=== PATIENT | female | born 1985 | race Caucasian/White ===

== ENCOUNTER 2016-07-21 08:13 | Emergency (ER) | payer OTHER ==
[~2016-07-21 08:13] MED LIST: ABILIFY10 MG PO; AZASAN75 MG PO; CATAPRES 0.1MG0.1 MG PO; ELAVIL 10 MG TA10 MG PO; ENTOCORT EC3 MG PO; HYDROXYZINE HCL25 MG PO; LOMOTIL 2.5-0.1 EACH PO; MERCAPTOPURINE50 MG PO; METOPROLOL SUC100 MG PO; NAPROSYN500 MG PO; PHENAZOPYRIDIN200 MG PO; TIZANIDINE HCL4 M1 PO; TOPAMAX 100 MG100 MG PO; TRAZODONE HCL100 MG PO; WELLBUTRIN SR150 MG PO; ZANTAC150 MG PO
[2016-07-21 09:49] LABS: RED BLOOD COUNT 4.94 M/UL (4.00-5.10); WHITE BLOOD COUNT 8.9 K/UL (4.5-11.0)
[2016-07-21 10:12] LABS: BUN/CREATININE RATIO 13 (0-10)
== END 2016-07-21 13:25 | disposition home or self-care (01) ==
LOC: ER1 08:13
PROVIDERS: Physician Assistant
DX: R10.13 Epigastric pain (principal); R10.12 Left upper quadrant pain; K62.5 Hemorrhage of anus and rectum; R19.7 Diarrhea, unspecified; R11.2 Nausea with vomiting, unspecified; Z90.49 Acquired absence of other specified parts of digestive tract
CPT/HCPCS: 36415; 80053; 81001; 82150; 83690; 85025; 96361; 96374; 96375; 96376; 99284; J2270; J2405; J7050; Q9962

== ENCOUNTER 2016-08-16 18:10 | Emergency (ER) | payer OTHER ==
[2016-08-16 19:27] LABS: HEMOGLOBIN 12.8 gm/dl (12.3-15.3); RED BLOOD COUNT 4.79 M/UL (4.00-5.10); WHITE BLOOD COUNT 11.5 K/UL (4.5-11.0)
[2016-08-16 19:46] LABS: BUN/CREATININE RATIO 11 (0-10)
== END 2016-08-17 00:15 | disposition home or self-care (01) ==
LOC: ER1 18:10
PROVIDERS: Family Medicine
DX: N39.0 Urinary tract infection, site not specified (principal); F41.9 Anxiety disorder, unspecified; F32.9 Major depressive disorder, single episode, unspecified; K58.9 Irritable bowel syndrome, unspecified; I10 Essential (primary) hypertension; Z90.710 Acquired absence of both cervix and uterus; Z90.49 Acquired absence of other specified parts of digestive tract
CPT/HCPCS: 36415; 80053; 81001; 82150; 83690; 84703; 85025; 87086; 96361; 96374; 96375; 96376; 99284; J2270; J2405; J7050; Q9962

== ENCOUNTER 2016-09-22 10:47 | Emergency (ER) | payer OTHER ==
[2016-09-22 11:51] LABS: HEMOGLOBIN 14.4 gm/dl (12.3-15.3); RED BLOOD COUNT 5.37 M/UL (4.00-5.10); WHITE BLOOD COUNT 14.8 K/UL (4.5-11.0)
[2016-09-22 11:58] LABS: BUN/CREATININE RATIO 12 (0-10)
== END 2016-09-22 14:40 | disposition home or self-care (01) ==
LOC: ER1 10:47
PROVIDERS: Preventive Medicine Occupational Medicine
DX: K50.90 Crohn's disease, unspecified, without complications (principal); N39.0 Urinary tract infection, site not specified; F41.9 Anxiety disorder, unspecified; Z87.891 Personal history of nicotine dependence; Z79.899 Other long term (current) drug therapy
CPT/HCPCS: 36415; 80053; 80307; 81001; 82150; 83690; 85025; 86140; 96361; 96374; 96375; 99284; J2405; J2550; J7050; Q9962

== ENCOUNTER 2020-07-01 23:38 | Emergency (ER) | payer MEDICARE ==
[~2020-07-01 23:38] MED LIST changes: +CEFUROXIME500 MG PO; +CIPRO500 MG PO; +FLAGYL500 MG PO; +IBUPROFEN800 MG PO; +K-DUR TAB 20 M20 MEQ PO; +MEDROL DOSEPAK 24 MG PO; +PHENERGAN 12.12.5 M1 PO; +PHENERGAN 25 MG25 M1 PO; +PREDNISONE20 MG PO; +PYRIDIUM200 MG PO
[2020-07-02 00:56] LABS: HEMOGLOBIN 12.4 gm/dl (12.3-15.3); RED BLOOD COUNT 4.8 M/UL (4.00-5.10); WHITE BLOOD COUNT 16.8 K/UL (4.5-11.0)
[2020-07-02 01:10] LABS: BUN/CREATININE RATIO 16 (0-10)
[2020-07-02] MEDS ORDERED: ENDOCET 5-3251 EACH PO (01:40)
[2020-07-02] MEDS ORDERED: AUGMENTIN 875-1 EACH PO (01:47)
[2020-07-02] MEDS ORDERED: PREDNISONE 20 M20 MG PO (01:47)
[2020-07-02] MEDS ORDERED: PHENERGAN 25 MG25 M1 PO (01:50)
== END 2020-07-02 02:10 | disposition home or self-care (01) ==
LOC: ER1 23:38
PROVIDERS: Emergency Medicine
DX: K50.90 Crohn's disease, unspecified, without complications (principal); K62.5 Hemorrhage of anus and rectum; E11.9 Type 2 diabetes mellitus without complications; Z88.5 Allergy status to narcotic agent; Z88.8 Allergy status to other drugs, medicaments and biological substances; Z79.4 Long term (current) use of insulin; Z90.710 Acquired absence of both cervix and uterus; Z88.7 Allergy status to serum and vaccine
CPT/HCPCS: 36415; 80053; 81001; 83690; 85025; 96374; 96375; 96376; 99284; J1100; J1170; J2550

== ENCOUNTER 2020-07-04 16:25 | Emergency (ER) | payer MEDICARE, OTHER ==
[~2020-07-04 16:25] MED LIST changes: +AUGMENTIN 875-1 EACH PO; +ENDOCET 5-3251 EACH PO; +PREDNISONE 20 M20 MG PO
[2020-07-04 17:42] LABS: HEMOGLOBIN 13.2 gm/dl (12.3-15.3); RED BLOOD COUNT 5.05 M/UL (4.00-5.10); WHITE BLOOD COUNT 17.4 K/UL (4.5-11.0)
[2020-07-04 18:02] LABS: BUN/CREATININE RATIO 15 (0-10)
[2020-07-04] MEDS ORDERED: PREDNISONE 20 M20 MG PO (20:19)
== END 2020-07-04 20:54 | disposition home or self-care (01) ==
LOC: ER1 16:25
PROVIDERS: Emergency Medicine
DX: K62.5 Hemorrhage of anus and rectum (principal); I12.9 Hypertensive chronic kidney disease with stage 1 through stage 4 chronic kidney disease, or unspecified chronic kidney disease; E11.22 Type 2 diabetes mellitus with diabetic chronic kidney disease; N18.9 Chronic kidney disease, unspecified; Z88.5 Allergy status to narcotic agent; Z88.8 Allergy status to other drugs, medicaments and biological substances; Z90.710 Acquired absence of both cervix and uterus; Z88.6 Allergy status to analgesic agent
CPT/HCPCS: 36415; 80053; 82550; 82553; 83690; 83874; 84484; 85025; 85610; 85730; 96372; 96374; 99284; J2270; J2405; J2550; Q9967

== ENCOUNTER 2020-08-28 00:02 | Emergency (ER) | payer MEDICARE, OTHER ==
[2020-08-28 02:19] LABS: RED BLOOD COUNT 5.28 M/UL (4.00-5.10); WHITE BLOOD COUNT 13.7 K/UL (4.5-11.0)
[2020-08-28 02:41] LABS: BUN/CREATININE RATIO 9 (0-10)
[2020-08-28] MEDS ORDERED: CIPRO500 MG PO (04:07)
[2020-08-28] MEDS ORDERED: PREDNISONE 20 M20 MG PO (04:07)
[2020-08-28] MEDS ORDERED: K-DUR TAB 20 M20 MEQ PO (04:07)
[2020-08-28] MEDS ORDERED: PHENERGAN 25 MG25 M1 PO (04:07)
[2020-08-28] MEDS ORDERED: FLAGYL500 MG PO (04:07)
== END 2020-08-28 04:30 | disposition home or self-care (01) ==
LOC: ER1 00:02
PROVIDERS: Physician Assistant
DX: K50.90 Crohn's disease, unspecified, without complications (principal); E87.6 Hypokalemia; E11.9 Type 2 diabetes mellitus without complications; Z90.89 Acquired absence of other organs; Z90.49 Acquired absence of other specified parts of digestive tract; Z90.710 Acquired absence of both cervix and uterus; Z79.899 Other long term (current) drug therapy; Z88.5 Allergy status to narcotic agent; Z88.8 Allergy status to other drugs, medicaments and biological substances
CPT/HCPCS: 80053; 81001; 82272; 83690; 85025; 96374; 96375; 99284; J2270; J2550

== ENCOUNTER 2020-09-06 22:56 | Emergency (ER) | payer MEDICARE, OTHER ==
[2020-09-07 02:25] LABS: HEMOGLOBIN 13.3 gm/dl (12.3-15.3); RED BLOOD COUNT 4.99 M/UL (4.00-5.10)
[2020-09-07 02:44] LABS: BUN/CREATININE RATIO 13 (0-10)
[2020-09-07] MEDS ORDERED: FLAGYL500 MG PO (03:28)
[2020-09-07] MEDS ORDERED: PREDNISONE 20 M20 MG PO (03:28)
[2020-09-07] MEDS ORDERED: CIPRO500 MG PO (03:28)
[2020-09-07] MEDS ORDERED: PHENERGAN 25 MG25 M1 PO (03:28)
== END 2020-09-07 02:45 | disposition home or self-care (01) ==
LOC: ER1 22:56
PROVIDERS: Physician Assistant
DX: K50.90 Crohn's disease, unspecified, without complications (principal); E11.9 Type 2 diabetes mellitus without complications; Z90.49 Acquired absence of other specified parts of digestive tract; Z90.89 Acquired absence of other organs; Z88.5 Allergy status to narcotic agent; Z88.8 Allergy status to other drugs, medicaments and biological substances
CPT/HCPCS: 80053; 81001; 83690; 85025; 93005; 96374; 96375; 99284; J2270; J2550

== ENCOUNTER 2020-09-19 21:00 | Emergency (ER) | payer MEDICARE, OTHER ==
[2020-09-19 22:45] LABS: HEMOGLOBIN 13.1 gm/dl (12.3-15.3); RED BLOOD COUNT 4.89 M/UL (4.00-5.10); WHITE BLOOD COUNT 15.5 K/UL (4.5-11.0)
[2020-09-19 23:07] LABS: BUN/CREATININE RATIO 13 (0-10)
[2020-09-19] MEDS ORDERED: BUTALB-ACETAMI1 EAC1 PO (23:32)
== END 2020-09-20 05:00 | disposition home or self-care (01) ==
LOC: ER1 21:00
PROVIDERS: Family Medicine
DX: K50.90 Crohn's disease, unspecified, without complications (principal); F17.200 Nicotine dependence, unspecified, uncomplicated; Z88.6 Allergy status to analgesic agent; Z88.8 Allergy status to other drugs, medicaments and biological substances
CPT/HCPCS: 71045; 80053; 81001; 82270; 83690; 85025; 85610; 86850; 86900; 86901; 96374; 96375; 96376; 99284; J2270; J2550; Q9967

== ENCOUNTER 2020-09-27 17:24 | Emergency (ER) | payer MEDICARE, OTHER ==
[~2020-09-27 17:24] MED LIST changes: +BUTALB-ACETAMI1 EAC1 PO
== END 2020-09-27 17:45 | disposition left against medical advice (07) ==
LOC: ER1 17:24
DX: Z53.21 Procedure and treatment not carried out due to patient leaving prior to being seen by health care provider (principal)

== ENCOUNTER 2020-11-03 00:31 | Emergency (ER) | payer MEDICARE, OTHER ==
[2020-11-03 02:21] LABS: HEMOGLOBIN 13.3 gm/dl (12.3-15.3); RED BLOOD COUNT 4.92 M/UL (4.00-5.10)
[2020-11-03 02:41] LABS: BUN/CREATININE RATIO 16 (0-10)
== END 2020-11-03 02:32 | disposition home or self-care (01) ==
LOC: ER1 00:31
PROVIDERS: Physician Assistant
DX: R10.84 Generalized abdominal pain (principal); R11.2 Nausea with vomiting, unspecified; R19.7 Diarrhea, unspecified; E11.9 Type 2 diabetes mellitus without complications; F17.210 Nicotine dependence, cigarettes, uncomplicated; Z90.89 Acquired absence of other organs; Z90.49 Acquired absence of other specified parts of digestive tract; Z90.710 Acquired absence of both cervix and uterus; Z88.8 Allergy status to other drugs, medicaments and biological substances; Z88.6 Allergy status to analgesic agent
CPT/HCPCS: 80053; 81001; 83605; 83690; 84703; 85025; 85652; 86140; 87086; 96374; 99284; J2765; J7030

== ENCOUNTER 2020-12-18 04:00 | Emergency (ER) | payer MEDICARE, OTHER ==
[2020-12-18 06:01] LABS: HEMOGLOBIN 13.3 gm/dl (12.3-15.3)
[2020-12-18 06:30] LABS: BUN/CREATININE RATIO 9 (0-10)
[2020-12-18] MEDS ORDERED: PHENERGAN 25 MG25 M1 PO (06:43)
== END 2020-12-18 07:47 | disposition home or self-care (01) ==
LOC: ER1 04:00
PROVIDERS: Family Medicine
DX: R11.2 Nausea with vomiting, unspecified (principal); R19.7 Diarrhea, unspecified; R10.9 Unspecified abdominal pain; Z88.8 Allergy status to other drugs, medicaments and biological substances; Z79.899 Other long term (current) drug therapy
CPT/HCPCS: 80053; 81001; 83605; 83690; 85025; 96374; 99284; J2550

== ENCOUNTER 2021-06-04 03:29 | Emergency (ER) | payer MEDICARE ==
[2021-06-04 04:19] LABS: HEMOGLOBIN 12.8 gm/dl (12.3-15.3); RED BLOOD COUNT 4.86 M/UL (4.00-5.10); WHITE BLOOD COUNT 13.9 K/UL (4.5-11.0)
[2021-06-04 04:41] LABS: BUN/CREATININE RATIO 11 (0-10)
[2021-06-04] MEDS ORDERED: BENTYL 20MG TAB20 MG PO (05:48)
[2021-06-04] MEDS ORDERED: REGLAN10 MG PO (05:48)
== END 2021-06-04 06:23 | disposition home or self-care (01) ==
LOC: ER1 03:29
PROVIDERS: Physician Assistant
DX: R10.32 Left lower quadrant pain (principal); R10.814 Left lower quadrant abdominal tenderness; E11.9 Type 2 diabetes mellitus without complications; Z90.710 Acquired absence of both cervix and uterus; Z88.8 Allergy status to other drugs, medicaments and biological substances; Z20.822 Contact with and (suspected) exposure to COVID-19
CPT/HCPCS: 0240U; 80053; 81001; 82150; 83605; 83690; 85025; 87086; 96372; 96374; 96375; 99284; J0500; J0780; J2270; J2765; J7030; Q9967